=== PATIENT | male | born 1990 | race Two or more races ===

== ENCOUNTER 2021-05-14 20:47 | Emergency (ER) | payer OTHER ==
[~2021-05-14] VITALS: Ht 170.2 cm; Wt 90.9 kg
[2021-05-14 22:42] VITALS: BP 151/77
[2021-05-14] MEDS ORDERED: HYDR-2761 PO (22:51)
[2021-05-14] MEDS ORDERED: BENZ57SP MM (22:51)
--- NOTE | 2021-05-14 22:54 | PHYS DOC ---
General Adult EDM: Chief Complaint: DENTAL PROBLEM HPI: HPI: Patient is a 30 year old male who presents with has a bottom right broken wisdom tooth with a nerve exposed and then he has a filling that fell out on the left side. He states that he does have an appointment with a dental surgeon in 2 weeks and he is currently on antibiotics. He states he has tried the Orajel but is too painful to touch the area. Rates his pain a 10 out of 10 at this time. Review of Systems: Review of Systems: Constitutional: Denies fever or chills. [] Eyes: Denies change in visual acuity. [] HENT: Denies nasal congestion or sore throat. + Dental pain [] Respiratory: Denies cough or shortness of breath. [] Cardiovascular: Denies chest pain or edema. [] GI: Denies abdominal pain, nausea, vomiting, bloody stools or diarrhea. [] : Denies dysuria. [] Musculoskeletal: Denies back pain or joint pain. [] Integument: Denies rash. [] Neurologic: Denies headache, focal weakness or sensory changes. [] Endocrine: Denies polyuria or polydipsia. [] Lymphatic: Denies swollen glands. [] Psychiatric: Denies depression or anxiety. [] Heart Score: C/O Chest Pain: No Risk Factors: Risk Factors: DM, Current or recent (<one month) smoker, HTN, HLP, family history of CAD, obesity. Risk Scores: Score 0 - 3: 2.5% MACE over next 6 weeks - Discharge Home Score 4 - 6: 20.3% MACE over next 6 weeks - Admit for Clinical Observation Score 7 - 10: 72.7% MACE over next 6 weeks - Early Invasive Strategies Physical Exam: PE: Constitutional: Well developed, well nourished, no acute distress, non-toxic appearance. [] HENT: Normocephalic, atraumatic, bilateral external ears normal, oropharynx moist, no oral exudates, nose normal. Right bottom wisdom broken tooth. Left sided lower filling fell out. [] Eyes: PERRLA, EOMI, conjunctiva normal, no discharge. [] Neck: Normal range of motion, no tenderness, supple, no stridor. [] Cardiovascular:Heart rate regular rhythm, no murmur [] Lungs & Thorax: Bilateral breath sounds clear to auscultation [] Abdomen: Bowel sounds normal, soft, no tenderness, no masses, no pulsatile masses. [] Skin: Warm, dry, no erythema, no rash. [] Back: No tenderness, no CVA tenderness. [] Extremities: No tenderness, no cyanosis, no clubbing, ROM intact, no edema. [] Neurologic: Alert and oriented X 3, normal motor function, normal sensory function, no focal deficits noted. [] Psychologic: Affect normal, judgement normal, mood normal. [] EKG: EKG: [] Radiology/Procedures: Radiology/Procedures: [] Course & Med Decision Making: Course & Med Decision Making Pertinent Labs and Imaging studies reviewed. (See chart for details) See HPI. Alert and oriented x4. Ambulatory steady gait. Speaks in full clear sentences. Afebrile. No facial swelling. Patient is already on antibiotic. I will give him emergency dental resources. He will get a prescription for hydrocodone and hurricane spray. [] Dragon Disclaimer: Carrie Disclaimer: This electronic medical record was generated, in whole or in part, using a voice recognition dictation system. Departure Departure Impression: Primary Impression: Pain, dental Disposition: HOME / SELF CARE / HOMELESS Condition: STABLE Referrals: NO PCP (PCP) Patient Instructions: Dental Pain Additional Instructions: Follow-up with the dental surgeon as scheduled. I will off so gave you resources for emergency dental places to walk into deceiving get in sooner. Take medication as prescribed and with food. Member some medications will make you sleepy so do not drive or drink any alcohol on top of them. Scripts Hydrocodone Bit/Acetaminophen (HYDROCODONE-APAP 5-325 ) 1 Tab Tablet 1 TAB PO PRN Q6HRS PRN for PAIN, #15 TAB 0 Refills Prov: OBINNA BLANCO APRN 05/14/21 Benzocaine (HURRICAINE) 57 Gm Allons 57 GM MM TID PRN for PAIN, #1 SPRAY USE TO AREA OF PAIN TO NUMB NERVE OF TOOTH Prov: OBINNA BLANCO APRN 05/14/21 OBINNA BLANCO APRN May 14, 2021 22:54
== END 2021-05-14 22:59 | disposition home or self-care (01) ==
LOC: ER 20:47
DX: K08.89 Other specified disorders of teeth and supporting structures (principal)
CPT/HCPCS: 99283

== ENCOUNTER 2021-06-18 11:10 | Emergency (ER) | payer OTHER ==
[~2021-06-18] VITALS: Ht 170.2 cm; Wt 88.2 kg
[~2021-06-18 11:10] MED LIST: BENZ57SP MM; HYDR-2761 PO
[2021-06-18 11:15] VITALS: BP 148/92
[2021-06-18] MEDS ORDERED: KETO15CR2 TP (11:33)
[2021-06-18] MEDS ORDERED: CIPR500T2 PO (11:33)
--- NOTE | 2021-06-18 11:33 | ED.ADGEN ---
Past Medical History Past Surgical History: No Surgical History Smoking Status: Never Smoker Alcohol Use: Rarely General Adult EDM: Chief Complaint: FOOT INJURY PAIN HPI: HPI: Patient is a 31 year old male coming in for injury to his left foot. 2 days ago stepped on a nail. Was able to remove the nail easily but is unsure how far went in. His ability ambulate on the foot. Had some bleeding at the time but nothing since the initial incident. Is unsure when his last tetanus is but thinks it was longer than the last 10 years. Also complaining of rash to bilateral shoulders. States is not itchy. Review of Systems: Review of Systems: All other systems within normal limits except for as noted in the HPI Allergies: Allergies: Allergies Coded Allergies Type Severity Reaction Last Updated Verified No Known Drug Allergies 05/15/21 No Physical Exam: PE: Constitutional: Well developed, well nourished, no acute distress, non-toxic appearance. [] HENT: Normocephalic, atraumatic, bilateral external ears normal, nose normal. [] Eyes: PERRLA, conjunctiva normal, no discharge. [] Neck: No rigidity, supple, no stridor. [] Cardiovascular: Regular rate and rhythm, brisk cap refill [] Lungs & Thorax: Non labored symmetric respirations, no tachypnea or respiratory distress [] Abdomen: Soft, nondistended. Skin: Warm, dry, no erythema, no rash. Punctate wound on the ball of left foot, no surrounding erythema or discharge. Bilateral anterior and superior shoulders well demarcated circular lesions ranging from 1 cm to 1.5 cm with hypopigmentation. [] Back: Unremarkable Extremities: No deformities, range of motion grossly intact, no lower extremity edema. No tenderness to metatarsals [] Neurologic: Alert and oriented X 3, no focal deficits noted. [] Psychologic: Affect normal, judgement normal, mood normal. [] EKG: EKG: [] Heart Score: C/O Chest Pain: No Risk Factors: Risk Factors: DM, Current or recent (<one month) smoker, HTN, HLP, family history of CAD, obesity. Risk Scores: Score 0 - 3: 2.5% MACE over next 6 weeks - Discharge Home Score 4 - 6: 20.3% MACE over next 6 weeks - Admit for Clinical Observation Score 7 - 10: 72.7% MACE over next 6 weeks - Early Invasive Strategies Radiology/Procedures: Radiology/Procedures: [] Course & Med Decision Making: Course & Med Decision Making Pertinent Labs and Imaging studies reviewed. (See chart for details) [] Carrie Disclaimer: Carrie Disclaimer: This electronic medical record was generated, in whole or in part, using a voice recognition dictation system. Departure Departure Impression: Primary Impression: Puncture wound of plantar aspect of left foot Additional Impression: Tinea versicolor Disposition: HOME / SELF CARE / HOMELESS Condition: STABLE Referrals: NO PCP (PCP) Patient Instructions: Puncture Wound, [id number] Scripts Ketoconazole (KETOCONAZOLE) 15 Gm Cream..g. 1 LUIS TP QHS for rash for 14 Days, #60 GM 1 Refill Prov: AIMEE BROTHERS MD 06/18/21 Ciprofloxacin Hcl (CIPROFLOXACIN HCL) 500 Mg Tablet 1 TAB PO BID for antibiotic for 7 Days, #14 TAB Prov: AIMEE BROTHERS MD 06/18/21 Problem Qualifiers AIMEE BROTHERS MD Jun 18, 2021 11:33
[2021-06-18] MEDS ORDERED: DIPH,PERTUSS(ACELL),TET VAC/PF 0.5 ML SYRINGE. VAX IM ONE (11:45)
== END 2021-06-18 11:52 | disposition home or self-care (01) ==
LOC: ER 11:10
DX: S91.332A Puncture wound without foreign body, left foot, initial encounter (principal); B36.0 Pityriasis versicolor; W22.8XXA Striking against or struck by other objects, initial encounter; Y93.89 Activity, other specified; Y92.89 Other specified places as the place of occurrence of the external cause; Y99.8 Other external cause status
CPT/HCPCS: 90471; 90715; 99283-25